=== PATIENT | female | born 1960 | race Caucasian/White ===

== ENCOUNTER 2023-01-26 14:12 | Inpatient (IN) | payer OTHER ==
[2023-01-26 14:40] VITALS: BMI 25.2
[2023-01-26] MEDS ORDERED: LOPERAMIDE HCL 2 MG CAPSULE PO PRN (15:51)
[2023-01-26] MEDS ORDERED: BENZONATATE 200 MG CAPSULE PO PRN (15:51)
[2023-01-26] MEDS ORDERED: ACETAMINOPHEN 325 MG TABLET (FP) PO PRN (15:51)
[2023-01-26] MEDS ORDERED: NICOTINE POLACRILEX 2 MG GUM BUC PRN (15:51)
[2023-01-26] MEDS ORDERED: guaiFENesin 600 MG TABLET.ER (FP) PO PRN (15:51)
[2023-01-26] MEDS ORDERED: BENZOCAINE/MENTHOL (CHLORASEPTIC ) LOZENGE MM PRN (15:51)
[2023-01-26] MEDS ORDERED: TUBERCULIN PPD 5 TU/0.1ML SYRINGE (IN PATIENT USE ONLY) ID ONE (15:51)
[2023-01-26] MEDS ORDERED: P-EPHED 60MG/TRIPROLIDI 2.5MG TABLET PO PRN (15:51)
[2023-01-26] MEDS ORDERED: MAG HYDROX/AL HYDROX/SIMETH 30 ML UNIT-DOSE CUP PO PRN (15:51)
[2023-01-26] MEDS ORDERED: POLYETHYLENE GLYCOL (HEALTHYLAX) 3350 17 GM PACKET PO PRN (15:51)
[2023-01-26] MEDS ORDERED: MAGNESIUM HYDROX 2400MG/30ML ORAL SUSPENSION 30 ML CUP PO PRN (15:51)
[2023-01-26] MEDS ORDERED: DARUNAVIR 800 MG/COBICISTAT 150MG TABLET PO SCH (17:30)
[2023-01-26] MEDS: ATORVASTATIN CA 40 MG TABLET (FP) PO SCH ×2 (21:54→22:30)
[2023-01-26] MEDS: THIAMINE HCL 100 MG TABLET (FP) PO SCH (21:54)
[2023-01-26] MEDS: CALCIUM 500MG/VIT-D 200 UNITS COMBO TABLET (FP) PO SCH ×2 (22:16→23:45)
[2023-01-26] MEDS: OXcarbazepine 300 MG TABLET (UD) PO SCH ×2 (23:45→23:55)
[2023-01-27] MEDS ORDERED: OXYBUTYNIN CHLORIDE 5 MG TABLET PO SCH ×2 (10:00→11:00)
[2023-01-27] MEDS ORDERED: ATORVASTATIN CA 20 MG TABLET (FP) PO SCH (10:06)
[2023-01-27] MEDS ORDERED: hydrOXYzine PAMOATE 25 MG CAPSULE (FP) PO PRN (10:09)
[2023-01-27] MEDS: PRENATAL VITAMINS W/ FOLIC ACID TABLET (FP) PO SCH (10:56)
[2023-01-27] MEDS: ASPIRIN COATED 81 MG TABLET.EC PO SCH (10:56)
[2023-01-27] MEDS: busPIRone HCL 10 MG TABLET (FP) PO SCH ×2 (10:56→21:06)
[2023-01-27] MEDS: CALCIUM 500MG/VIT-D 200 UNITS COMBO TABLET (FP) PO SCH ×2 (10:56→21:06)
[2023-01-27] MEDS: OXcarbazepine 300 MG TABLET (UD) PO SCH ×3 (10:58→21:06)
[2023-01-27] MEDS ORDERED: SENNOSIDES 8.6MG TABLET (FP) PO SCH (11:00)
[2023-01-27 11:50] LABS: HEMATOCRIT 35.1 % (32.4-45.2); HEMOGLOBIN 11.7 GM/dL (10.7-15.3); MCH 30.6 pg (25.7-33.7); MCHC 33.5 g/dl (32.0-36.0); MEAN CELL VOLUME 91.4 fl (80-96); MEAN PLT VOLUME 8.2 fl (7.5-11.1); PLATELET COUNT 255 10^3/uL (134-434); RBC 3.83 M/mm3 (3.60-5.2); RDW 15.5 % (11.6-15.6); WHITE BLOOD COUNT 4.9 K/mm3 (4.0-10.0)
[2023-01-27 11:55] LABS: ALBUMIN 3.1 g/dl (3.4-5.0); BLOOD UREA NITROGEN 12.4 mg/dL (7-18)
[2023-01-27 11:56] LABS: URINE APPEARANCE CLEAR; URINE BILIRUBIN NEGATIVE (NEGATIVE); URINE COLOR YELLOW; URINE GLUCOSE (UA) NEGATIVE (NEGATIVE); URINE KETONE NEGATIVE (NEGATIVE); URINE LEUK ESTERASE NEGATIVE (NEGATIVE); URINE NITRITE NEGATIVE (NEGATIVE); URINE PROTEIN NEGATIVE (NEGATIVE); URINE UROBILINOGEN 0.2 mg/dL (0.2-1.0)
[2023-01-27 11:58] LABS: CREATININE 0.7 mg/dL (0.55-1.3)
[2023-01-27 11:59] LABS: BILIRUBIN,TOTAL 0.4 mg/dL (0.2-1); TOT PROT 6.8 g/dl (6.4-8.2)
[2023-01-27] MEDS: DARUNAVIR/COB/EMTRI/TENOF (SYMTUZA) TABLET (NF) PO SCH (12:24)
[2023-01-27] MEDS ORDERED: PATIENT'S OWN MEDICATION (NON-FORMULARY) (Thiamine Hcl [B-1] 100 MG Tablet) PO SCH (14:45)
[2023-01-27] MEDS: FOLIC ACID 1 MG TABLET (FP) PO SCH (14:50)
[2023-01-27] MEDS: amLODIPine BESYLATE 5 MG TABLET (FP) PO SCH (14:50)
[2023-01-27] MEDS: LOSARTAN POTASSIUM 25 MG TABLET PO SCH (14:50)
[2023-01-27] MEDS: ISOSORBIDE MONONITRATE 30 MG TAB.SR.24H (FP) PO SCH (16:00)
[2023-01-27] MEDS: DOCUSATE SODIUM 100 MG CAPSULE (FP) PO SCH (21:05)
[2023-01-27] MEDS: THIAMINE HCL 100 MG TABLET (FP) PO SCH (21:06)
[2023-01-27] MEDS: ATORVASTATIN CA 40 MG TABLET (FP) PO SCH (21:06)
[2023-01-27] MEDS: SENNOSIDES 8.6MG TABLET (FP) PO PRN (21:06)
[2023-01-28] MEDS: LEVOTHYROXINE NA 25 MCG TABLET (FP) PO SCH (06:45)
[2023-01-28] MEDS: DARUNAVIR/COB/EMTRI/TENOF (SYMTUZA) TABLET (NF) PO SCH (08:07)
[2023-01-28] MEDS: ISOSORBIDE MONONITRATE 30 MG TAB.SR.24H (FP) PO SCH (10:07)
[2023-01-28] MEDS: PRENATAL VITAMINS W/ FOLIC ACID TABLET (FP) PO SCH (10:07)
[2023-01-28] MEDS: busPIRone HCL 10 MG TABLET (FP) PO SCH ×2 (10:07→21:29)
[2023-01-28] MEDS: OXcarbazepine 300 MG TABLET (UD) PO SCH ×2 (10:07→21:29)
[2023-01-28] MEDS: LOSARTAN POTASSIUM 25 MG TABLET PO SCH (10:07)
[2023-01-28] MEDS: amLODIPine BESYLATE 5 MG TABLET (FP) PO SCH (10:07)
[2023-01-28] MEDS: FOLIC ACID 1 MG TABLET (FP) PO SCH (10:07)
[2023-01-28] MEDS: ASPIRIN COATED 81 MG TABLET.EC PO SCH (10:07)
[2023-01-28] MEDS: DOCUSATE SODIUM 100 MG CAPSULE (FP) PO SCH ×2 (10:07→21:29)
[2023-01-28] MEDS: CLOPIDOGREL BISULFATE 75 MG TABLET (FP) PO SCH (10:07)
[2023-01-28] MEDS: CALCIUM 500MG/VIT-D 200 UNITS COMBO TABLET (FP) PO SCH ×2 (10:08→21:29)
[2023-01-28] MEDS: SENNOSIDES 8.6MG TABLET (FP) PO PRN (21:29)
[2023-01-28] MEDS: ATORVASTATIN CA 40 MG TABLET (FP) PO SCH (21:29)
[2023-01-28] MEDS: BACITRACIN ZINC 15 GM TUBE TOPICAL OINTMENT TP SCH (21:29)
[2023-01-28] MEDS: THIAMINE HCL 100 MG TABLET (FP) PO SCH (21:29)
[2023-01-29] MEDS: NICOTINE 10 MG CARTRIDGE (INHALER) IH PRN (06:37)
[2023-01-29] MEDS: LEVOTHYROXINE NA 25 MCG TABLET (FP) PO SCH (06:40)
[2023-01-29] MEDS: DARUNAVIR/COB/EMTRI/TENOF (SYMTUZA) TABLET (NF) PO SCH (07:03)
[2023-01-29] MEDS: BACITRACIN ZINC 15 GM TUBE TOPICAL OINTMENT TP SCH ×2 (10:23→21:55)
[2023-01-29] MEDS: DOCUSATE SODIUM 100 MG CAPSULE (FP) PO SCH ×2 (10:24→21:56)
[2023-01-29] MEDS: busPIRone HCL 10 MG TABLET (FP) PO SCH ×2 (10:24→21:56)
[2023-01-29] MEDS: LOSARTAN POTASSIUM 25 MG TABLET PO SCH (10:28)
[2023-01-29] MEDS: ISOSORBIDE MONONITRATE 30 MG TAB.SR.24H (FP) PO SCH (10:29)
[2023-01-29] MEDS: FOLIC ACID 1 MG TABLET (FP) PO SCH (10:29)
[2023-01-29] MEDS: ASPIRIN COATED 81 MG TABLET.EC PO SCH (10:29)
[2023-01-29] MEDS: amLODIPine BESYLATE 5 MG TABLET (FP) PO SCH (10:30)
[2023-01-29] MEDS: CLOPIDOGREL BISULFATE 75 MG TABLET (FP) PO SCH (10:30)
[2023-01-29] MEDS: PRENATAL VITAMINS W/ FOLIC ACID TABLET (FP) PO SCH (10:30)
[2023-01-29] MEDS: CALCIUM 500MG/VIT-D 200 UNITS COMBO TABLET (FP) PO SCH ×2 (10:30→21:58)
[2023-01-29] MEDS: OXcarbazepine 300 MG TABLET (UD) PO SCH ×2 (10:31→21:56)
[2023-01-29] MEDS: WITCH HAZEL 50% (TUCKS) 40 PAD/JAR PAD TP PRN ×2 (12:15→21:45)
[2023-01-29] MEDS: ATORVASTATIN CA 40 MG TABLET (FP) PO SCH (21:56)
[2023-01-29] MEDS: THIAMINE HCL 100 MG TABLET (FP) PO SCH (21:58)
[2023-01-29] MEDS: HYDROCORTISONE 2.5% TOPICAL CREAM 30 GM TUBE TP SCH (21:58)
[2023-01-30] MEDS: LEVOTHYROXINE NA 25 MCG TABLET (FP) PO SCH (06:36)
[2023-01-30] MEDS: busPIRone HCL 10 MG TABLET (FP) PO SCH ×2 (10:43→21:25)
[2023-01-30] MEDS: FOLIC ACID 1 MG TABLET (FP) PO SCH (10:43)
[2023-01-30] MEDS: CALCIUM 500MG/VIT-D 200 UNITS COMBO TABLET (FP) PO SCH ×2 (10:43→21:25)
[2023-01-30] MEDS: LOSARTAN POTASSIUM 25 MG TABLET PO SCH (10:43)
[2023-01-30] MEDS: ASPIRIN COATED 81 MG TABLET.EC PO SCH (10:43)
[2023-01-30] MEDS: amLODIPine BESYLATE 5 MG TABLET (FP) PO SCH (10:44)
[2023-01-30] MEDS: CLOPIDOGREL BISULFATE 75 MG TABLET (FP) PO SCH (10:44)
[2023-01-30] MEDS: DOCUSATE SODIUM 100 MG CAPSULE (FP) PO SCH ×2 (10:44→21:25)
[2023-01-30] MEDS: HYDROCORTISONE 2.5% TOPICAL CREAM 30 GM TUBE TP SCH ×2 (10:46→21:26)
[2023-01-30] MEDS: PRENATAL VITAMINS W/ FOLIC ACID TABLET (FP) PO SCH (10:48)
[2023-01-30] MEDS: BACITRACIN ZINC 15 GM TUBE TOPICAL OINTMENT TP SCH ×2 (11:26→21:25)
[2023-01-30] MEDS: ISOSORBIDE MONONITRATE 30 MG TAB.SR.24H (FP) PO SCH (11:27)
[2023-01-30] MEDS: OXcarbazepine 300 MG TABLET (UD) PO SCH ×2 (11:35→21:25)
[2023-01-30] MEDS: DARUNAVIR/COB/EMTRI/TENOF (SYMTUZA) TABLET (NF) PO SCH (11:47)
[2023-01-30] MEDS: hydrOXYzine PAMOATE 25 MG CAPSULE (FP) PO PRN ×2 (14:48→21:28)
[2023-01-30] MEDS: THIAMINE HCL 100 MG TABLET (FP) PO SCH (21:25)
[2023-01-30] MEDS: ATORVASTATIN CA 40 MG TABLET (FP) PO SCH (21:25)
[2023-01-31] MEDS: LEVOTHYROXINE NA 25 MCG TABLET (FP) PO SCH (06:35)
[2023-01-31] MEDS: DARUNAVIR/COB/EMTRI/TENOF (SYMTUZA) TABLET (NF) PO SCH (07:07)
[2023-01-31] MEDS: NICOTINE 10 MG CARTRIDGE (INHALER) IH PRN (07:09)
[2023-01-31 07:31] VITALS: RESP 18
[2023-01-31] MEDS: DOCUSATE SODIUM 100 MG CAPSULE (FP) PO SCH ×2 (10:19→21:46)
[2023-01-31] MEDS: PRENATAL VITAMINS W/ FOLIC ACID TABLET (FP) PO SCH (10:19)
[2023-01-31] MEDS: CALCIUM 500MG/VIT-D 200 UNITS COMBO TABLET (FP) PO SCH ×2 (10:19→21:46)
[2023-01-31] MEDS: LOSARTAN POTASSIUM 25 MG TABLET PO SCH (10:19)
[2023-01-31] MEDS: busPIRone HCL 10 MG TABLET (FP) PO SCH ×2 (10:19→21:46)
[2023-01-31] MEDS: amLODIPine BESYLATE 5 MG TABLET (FP) PO SCH (10:19)
[2023-01-31] MEDS: FOLIC ACID 1 MG TABLET (FP) PO SCH (10:19)
[2023-01-31] MEDS: BACITRACIN ZINC 15 GM TUBE TOPICAL OINTMENT TP SCH ×2 (10:20→21:46)
[2023-01-31] MEDS: ISOSORBIDE MONONITRATE 30 MG TAB.SR.24H (FP) PO SCH (10:20)
[2023-01-31] MEDS: CLOPIDOGREL BISULFATE 75 MG TABLET (FP) PO SCH (10:20)
[2023-01-31] MEDS: OXcarbazepine 300 MG TABLET (UD) PO SCH ×2 (10:21→21:47)
[2023-01-31] MEDS: HYDROCORTISONE 2.5% TOPICAL CREAM 30 GM TUBE TP SCH ×2 (10:21→21:46)
[2023-01-31] MEDS: ASPIRIN COATED 81 MG TABLET.EC PO SCH (10:21)
[2023-01-31] MEDS: WITCH HAZEL 50% (TUCKS) 40 PAD/JAR PAD TP PRN (10:24)
[2023-01-31] MEDS: ATORVASTATIN CA 40 MG TABLET (FP) PO SCH (21:46)
[2023-01-31] MEDS: THIAMINE HCL 100 MG TABLET (FP) PO SCH (21:46)
[2023-01-31] MEDS: MELATONIN 5 MG TABLETS PO PRN (21:46)
[2023-02-01] MEDS: LEVOTHYROXINE NA 25 MCG TABLET (FP) PO SCH (05:57)
[2023-02-01] MEDS: DARUNAVIR/COB/EMTRI/TENOF (SYMTUZA) TABLET (NF) PO SCH (07:43)
[2023-02-01] MEDS: PRENATAL VITAMINS W/ FOLIC ACID TABLET (FP) PO SCH (10:18)
[2023-02-01] MEDS: DOCUSATE SODIUM 100 MG CAPSULE (FP) PO SCH ×2 (10:19→21:24)
[2023-02-01] MEDS: ASPIRIN COATED 81 MG TABLET.EC PO SCH (10:19)
[2023-02-01] MEDS: CALCIUM 500MG/VIT-D 200 UNITS COMBO TABLET (FP) PO SCH ×2 (10:19→21:24)
[2023-02-01] MEDS: LOSARTAN POTASSIUM 25 MG TABLET PO SCH (10:19)
[2023-02-01] MEDS: busPIRone HCL 10 MG TABLET (FP) PO SCH ×2 (10:19→21:24)
[2023-02-01] MEDS: CLOPIDOGREL BISULFATE 75 MG TABLET (FP) PO SCH (10:19)
[2023-02-01] MEDS: FOLIC ACID 1 MG TABLET (FP) PO SCH (10:19)
[2023-02-01] MEDS: amLODIPine BESYLATE 5 MG TABLET (FP) PO SCH (10:19)
[2023-02-01] MEDS: HYDROCORTISONE 2.5% TOPICAL CREAM 30 GM TUBE TP SCH ×2 (10:19→21:25)
[2023-02-01] MEDS: ISOSORBIDE MONONITRATE 30 MG TAB.SR.24H (FP) PO SCH (10:20)
[2023-02-01] MEDS: OXcarbazepine 300 MG TABLET (UD) PO SCH ×2 (10:20→21:26)
[2023-02-01] MEDS: BACITRACIN ZINC 15 GM TUBE TOPICAL OINTMENT TP SCH ×2 (10:22→21:25)
[2023-02-01] MEDS: ATORVASTATIN CA 40 MG TABLET (FP) PO SCH (21:24)
[2023-02-01] MEDS: THIAMINE HCL 100 MG TABLET (FP) PO SCH (21:25)
[2023-02-01] MEDS: MELATONIN 5 MG TABLETS PO PRN (21:25)
[2023-02-02] MEDS: LEVOTHYROXINE NA 25 MCG TABLET (FP) PO SCH (06:54)
[2023-02-02] MEDS: DARUNAVIR/COB/EMTRI/TENOF (SYMTUZA) TABLET (NF) PO SCH (07:55)
[2023-02-02] MEDS: BACITRACIN ZINC 15 GM TUBE TOPICAL OINTMENT TP SCH ×2 (10:11→21:29)
[2023-02-02] MEDS: HYDROCORTISONE 2.5% TOPICAL CREAM 30 GM TUBE TP SCH ×2 (10:11→21:29)
[2023-02-02] MEDS: ASPIRIN COATED 81 MG TABLET.EC PO SCH (10:12)
[2023-02-02] MEDS: busPIRone HCL 10 MG TABLET (FP) PO SCH ×2 (10:12→21:28)
[2023-02-02] MEDS: LOSARTAN POTASSIUM 25 MG TABLET PO SCH (10:12)
[2023-02-02] MEDS: DOCUSATE SODIUM 100 MG CAPSULE (FP) PO SCH ×2 (10:12→21:28)
[2023-02-02] MEDS: ISOSORBIDE MONONITRATE 30 MG TAB.SR.24H (FP) PO SCH (10:13)
[2023-02-02] MEDS: amLODIPine BESYLATE 5 MG TABLET (FP) PO SCH (10:13)
[2023-02-02] MEDS: FOLIC ACID 1 MG TABLET (FP) PO SCH (10:13)
[2023-02-02] MEDS: PRENATAL VITAMINS W/ FOLIC ACID TABLET (FP) PO SCH (10:14)
[2023-02-02] MEDS: CLOPIDOGREL BISULFATE 75 MG TABLET (FP) PO SCH (10:14)
[2023-02-02] MEDS: CALCIUM 500MG/VIT-D 200 UNITS COMBO TABLET (FP) PO SCH ×2 (10:14→21:28)
[2023-02-02] MEDS: OXcarbazepine 300 MG TABLET (UD) PO SCH ×2 (10:15→21:29)
[2023-02-02] MEDS: ATORVASTATIN CA 40 MG TABLET (FP) PO SCH (21:28)
[2023-02-02] MEDS: THIAMINE HCL 100 MG TABLET (FP) PO SCH (21:28)
[2023-02-02] MEDS: SENNOSIDES 8.6MG TABLET (FP) PO PRN (21:34)
[2023-02-03] MEDS: LEVOTHYROXINE NA 25 MCG TABLET (FP) PO SCH (06:18)
[2023-02-03] MEDS: PRENATAL VITAMINS W/ FOLIC ACID TABLET (FP) PO SCH (09:45)
[2023-02-03] MEDS: amLODIPine BESYLATE 5 MG TABLET (FP) PO SCH (09:46)
[2023-02-03] MEDS: CLOPIDOGREL BISULFATE 75 MG TABLET (FP) PO SCH (09:46)
[2023-02-03] MEDS: FOLIC ACID 1 MG TABLET (FP) PO SCH (09:46)
[2023-02-03] MEDS: DOCUSATE SODIUM 100 MG CAPSULE (FP) PO SCH ×2 (09:46→21:37)
[2023-02-03] MEDS: busPIRone HCL 10 MG TABLET (FP) PO SCH ×2 (09:46→21:37)
[2023-02-03] MEDS: LOSARTAN POTASSIUM 25 MG TABLET PO SCH (09:46)
[2023-02-03] MEDS: CALCIUM 500MG/VIT-D 200 UNITS COMBO TABLET (FP) PO SCH ×2 (09:46→21:36)
[2023-02-03] MEDS: ASPIRIN COATED 81 MG TABLET.EC PO SCH (09:47)
[2023-02-03] MEDS: OXcarbazepine 300 MG TABLET (UD) PO SCH ×2 (09:48→21:37)
[2023-02-03] MEDS: ISOSORBIDE MONONITRATE 30 MG TAB.SR.24H (FP) PO SCH (09:48)
[2023-02-03] MEDS: HYDROCORTISONE 2.5% TOPICAL CREAM 30 GM TUBE TP SCH ×2 (09:49→21:40)
[2023-02-03] MEDS: BACITRACIN ZINC 15 GM TUBE TOPICAL OINTMENT TP SCH ×2 (09:50→21:43)
[2023-02-03] MEDS: DARUNAVIR/COB/EMTRI/TENOF (SYMTUZA) TABLET (NF) PO SCH (10:16)
[2023-02-03 11:21] LABS: BASO % 0.7 % (0-2.0); EOS % 1.8 % (0-4.5); HEMATOCRIT 33.6 % (32.4-45.2); HEMOGLOBIN 11.4 GM/dL (10.7-15.3); LYMPH % 25.8 % (8-40); MCH 31.1 pg (25.7-33.7); MEAN CELL VOLUME 91.3 fl (80-96); MEAN PLT VOLUME 8.2 fl (7.5-11.1); MONO % 7.9 % (3.8-10.2); NEUT % 63.8 % (42.8-82.8); PLATELET COUNT 256 10^3/uL (134-434); RBC 3.68 M/mm3 (3.60-5.2); RDW 15.8 % (11.6-15.6); WHITE BLOOD COUNT 6.3 K/mm3 (4.0-10.0)
[2023-02-03] MEDS: WITCH HAZEL 50% (TUCKS) 40 PAD/JAR PAD TP PRN ×2 (11:54→21:41)
[2023-02-03] MEDS: THIAMINE HCL 100 MG TABLET (FP) PO SCH (21:37)
[2023-02-03] MEDS: MELATONIN 5 MG TABLETS PO PRN (21:37)
[2023-02-03] MEDS: ATORVASTATIN CA 40 MG TABLET (FP) PO SCH (21:37)
[2023-02-03] MEDS: SENNOSIDES 8.6MG TABLET (FP) PO PRN (21:39)
[2023-02-04] MEDS: LEVOTHYROXINE NA 25 MCG TABLET (FP) PO SCH (06:43)
[2023-02-04 07:21] VITALS: TEMP 98.1
[2023-02-04] MEDS: DARUNAVIR/COB/EMTRI/TENOF (SYMTUZA) TABLET (NF) PO SCH (07:41)
[2023-02-04] MEDS: amLODIPine BESYLATE 5 MG TABLET (FP) PO SCH (10:13)
[2023-02-04] MEDS: ISOSORBIDE MONONITRATE 30 MG TAB.SR.24H (FP) PO SCH (10:13)
[2023-02-04] MEDS: LOSARTAN POTASSIUM 25 MG TABLET PO SCH (10:13)
[2023-02-04] MEDS: HYDROCORTISONE 2.5% TOPICAL CREAM 30 GM TUBE TP SCH (10:13)
[2023-02-04] MEDS: busPIRone HCL 10 MG TABLET (FP) PO SCH (10:13)
[2023-02-04] MEDS: ASPIRIN COATED 81 MG TABLET.EC PO SCH (10:13)
[2023-02-04] MEDS: FOLIC ACID 1 MG TABLET (FP) PO SCH (10:13)
[2023-02-04] MEDS: CALCIUM 500MG/VIT-D 200 UNITS COMBO TABLET (FP) PO SCH (10:13)
[2023-02-04] MEDS: CLOPIDOGREL BISULFATE 75 MG TABLET (FP) PO SCH (10:13)
[2023-02-04] MEDS: DOCUSATE SODIUM 100 MG CAPSULE (FP) PO SCH (10:13)
[2023-02-04] MEDS: PRENATAL VITAMINS W/ FOLIC ACID TABLET (FP) PO SCH (10:14)
[2023-02-04] MEDS: OXcarbazepine 300 MG TABLET (UD) PO SCH (10:14)
[2023-02-04] MEDS: BACITRACIN ZINC 15 GM TUBE TOPICAL OINTMENT TP SCH (10:14)
[2023-02-04] MEDS: WITCH HAZEL 50% (TUCKS) 40 PAD/JAR PAD TP PRN (10:16)
[2023-02-04 11:29] VITALS: BP 149/77; PULSE 73
== END 2023-02-04 15:25 | disposition home or self-care (01) | DRG 772 ==
LOC: YASAS 14:12 → Y5N 19:34
PROVIDERS: ADMIT Allergy & Immunology; ATTEND Psychiatry & Neurology Pain Medicine
PROC: HZ42ZZZ Group Counseling for Substance Abuse Treatment, Cognitive-Behavioral (ICD-10-PCS; principal; 2023-01-26)
DX: F14.20 Cocaine dependence, uncomplicated (principal); F10.20 Alcohol dependence, uncomplicated; F17.210 Nicotine dependence, cigarettes, uncomplicated; F19.280 Other psychoactive substance dependence with psychoactive substance-induced anxiety disorder; F43.10 Post-traumatic stress disorder, unspecified; Z21 Asymptomatic human immunodeficiency virus [HIV] infection status; E78.5 Hyperlipidemia, unspecified; I25.10 Atherosclerotic heart disease of native coronary artery without angina pectoris; I10 Essential (primary) hypertension; Z95.5 Presence of coronary angioplasty implant and graft; Z91.410 Personal history of adult physical and sexual abuse; Z86.19 Personal history of other infectious and parasitic diseases; Z88.1 Allergy status to other antibiotic agents
CPT/HCPCS: 36415; 80053; 81003; 84443; 85025; 85027; 86593; 86780; 93005; 93010; C9803-CS; U0003; U0005

== ENCOUNTER 2024-03-23 11:11 | Inpatient (IN) | payer OTHER ==
[2024-03-23 12:31] VITALS: BMI 20.7
[2024-03-23] MEDS ORDERED: IBUPROFEN 600 MG TABLET (FP) PO PRN (13:14)
[2024-03-23] MEDS ORDERED: MAGNESIUM HYDROX 2400MG/30ML ORAL SUSPENSION 30 ML CUP PO PRN (13:14)
[2024-03-23] MEDS ORDERED: LOPERAMIDE HCL 2 MG CAPSULE PO PRN (13:14)
[2024-03-23] MEDS ORDERED: BISMUTH SUBSALICYLATE 524 MG/30 ML PO PRN (13:14)
[2024-03-23] MEDS ORDERED: METHOCARBAMOL 500 MG TABLET PO PRN (13:14)
[2024-03-23] MEDS ORDERED: hydrOXYzine PAMOATE 25 MG CAPSULE (FP) PO PRN (13:14)
[2024-03-23] MEDS ORDERED: BENZONATATE 200 MG CAPSULE PO PRN (13:14)
[2024-03-23] MEDS ORDERED: NICOTINE 14 MG/24 HOURS TOPICAL PATCH TD PRN (13:14)
[2024-03-23] MEDS ORDERED: POLYETHYLENE GLYCOL (HEALTHYLAX) 3350 17 GM PACKET PO PRN (13:14)
[2024-03-23] MEDS ORDERED: guaiFENesin 600 MG TABLET.ER (FP) PO PRN (13:14)
[2024-03-23] MEDS ORDERED: NICOTINE POLACRILEX 2 MG GUM BUC PRN (13:14)
[2024-03-23] MEDS ORDERED: MAG HYDROX/AL HYDROX/SIMETH 30 ML UNIT-DOSE CUP PO PRN (13:14)
[2024-03-23] MEDS ORDERED: IBUPROFEN 400 MG TABLET (FP) PO PRN (13:14)
[2024-03-23] MEDS ORDERED: BENZOCAINE/MENTHOL (CHLORASEPTIC ) LOZENGE MM PRN (13:14)
[2024-03-23] MEDS: LORazepam 1 MG TABLET PO SCH (17:40)
[2024-03-23] MEDS: MELATONIN 5 MG TABLETS PO SCH (22:25)
[2024-03-23] MEDS: THIAMINE 100 MG TABLET PO SCH (22:25)
[2024-03-24] MEDS ORDERED: BICTEGRAV/EMTRICIT/TENOFOV (BIKTARVY) 50-200-25 MG TABLET PO SCH ×2 (10:00→11:10)
[2024-03-24] MEDS: CALCIUM 500MG/VIT-D 200 UNITS COMBO TABLET (FP) PO SCH (10:25)
[2024-03-24] MEDS: amLODIPine BESYLATE 5 MG TABLET (FP) PO SCH (10:25)
[2024-03-24] MEDS: DOCUSATE SODIUM 100 MG CAPSULE (FP) PO SCH (10:25)
[2024-03-24] MEDS: LOSARTAN POTASSIUM 25 MG TABLET PO SCH (10:25)
[2024-03-24] MEDS: CLOPIDOGREL BISULFATE 75 MG TABLET (FP) PO SCH (10:25)
[2024-03-24] MEDS: PRENATAL VITAMINS W/ FOLIC ACID TABLET (FP) PO SCH (10:25)
[2024-03-24 10:49] LABS: CHLORIDE 109 mmol/L (98-107); SODIUM 142 mmol/L (136-145)
[2024-03-24 10:52] LABS: ANION GAP 5 mmol/L (4-13); BLOOD UREA NITROGEN 17.8 mg/dL (7-18); CALCIUM 8.8 mg/dL (8.5-10.1); CO2 28 mmol/L (21-32); GLUCOSE,RANDOM 118 mg/dL (74-106)
[2024-03-24 10:55] LABS: SGPT/ALT 10 U/L (13-61)
[2024-03-24 10:56] LABS: CREATININE 0.6 mg/dL (0.55-1.3); HEMATOCRIT 38.2 % (32.4-45.2); HEMOGLOBIN 12.7 GM/dL (10.7-15.3); MCH 29.7 pg (25.7-33.7); MCHC 33.4 g/dl (32.0-36.0); MEAN CELL VOLUME 88.9 fl (80-96); PLATELET COUNT 222 10^3/uL (134-434); RBC 4.29 M/mm3 (3.60-5.2); RDW 16.1 % (11.6-15.6); SGOT/AST 9 U/L (15-37); WHITE BLOOD COUNT 4.6 K/mm3 (4.0-10.0)
[2024-03-24 10:57] LABS: BILIRUBIN,TOTAL 0.5 mg/dL (0.2-1); TOT PROT 6.3 g/dl (6.4-8.2)
[2024-03-24 10:58] LABS: ALK PHOS 117 U/L (45-117)
[2024-03-24] MEDS: ISOSORBIDE MONONITRATE 30 MG TAB.SR.24H (FP) PO SCH (11:00)
[2024-03-24] MEDS: BICTEGRAV/EMTRICIT/TENOFOV (BIKTARVY) 50-200-25 MG TABLET PO ONE (12:05)
[2024-03-24] MEDS: LORazepam 1 MG TABLET PO PRN (20:06)
[2024-03-24] MEDS: ATORVASTATIN CA 40 MG TABLET (FP) PO SCH (22:06)
[2024-03-25] MEDS: LORazepam 1 MG TABLET PO SCH (05:33)
[2024-03-25] MEDS: LEVOTHYROXINE NA 25 MCG TABLET (FP) PO SCH (06:13)
[2024-03-25] MEDS ORDERED: BICTEGRAV/EMTRICIT/TENOFOV (BIKTARVY) 50-200-25 MG TABLET PO SCH (08:00)
[2024-03-25] MEDS: BICTEGRAV/EMTRICIT/TENOFOV (BIKTARVY) 50-200-25 MG TABLET PO SCH (08:01)
[2024-03-25] MEDS: FAMOTIDINE 20 MG TABLET PO SCH (14:16)
[2024-03-26] MEDS: LORazepam 0.5 MG TABLET PO SCH (05:24)
[2024-03-26] MEDS: ACETAMINOPHEN 325 MG TABLET (FP) PO PRN (23:17)
[2024-03-27] MEDS: LORazepam 0.5 MG TABLET PO ONE (05:27)
[2024-03-27 09:37] VITALS: BP 135/76; PULSE 69; RESP 18; TEMP 96.9
== END 2024-03-27 10:23 | disposition other institution (70) | DRG 774 ==
LOC: YASAS 11:11 → Y6N 13:28
PROVIDERS: ADMIT Allergy & Immunology; ATTEND Surgery
PROC: HZ2ZZZZ Detoxification Services for Substance Abuse Treatment (ICD-10-PCS; principal; 2024-03-23)
DX: F10.230 Alcohol dependence with withdrawal, uncomplicated (principal); F14.20 Cocaine dependence, uncomplicated; F17.210 Nicotine dependence, cigarettes, uncomplicated; Z21 Asymptomatic human immunodeficiency virus [HIV] infection status; I10 Essential (primary) hypertension; E78.5 Hyperlipidemia, unspecified; E03.9 Hypothyroidism, unspecified; E83.51 Hypocalcemia; K21.9 Gastro-esophageal reflux disease without esophagitis; K59.00 Constipation, unspecified; Z86.718 Personal history of other venous thrombosis and embolism; Z79.02 Long term (current) use of antithrombotics/antiplatelets; Z86.19 Personal history of other infectious and parasitic diseases; Z88.2 Allergy status to sulfonamides
CPT/HCPCS: 36415; 80053; 80305; 80307; 85027; 86593; 86780; 93005; 93010

== ENCOUNTER 2024-08-25 16:38 | Emergency (ER) | payer OTHER ==
[2024-08-25 17:01] VITALS: BP 132/76; PULSE 73; RESP 18; TEMP 98.2; BMI 23.3
== END 2024-08-25 17:49 | disposition home or self-care (01) ==
LOC: JER 16:38
DX: Z48.02 Encounter for removal of sutures (principal)
CPT/HCPCS: 99281-25

== ENCOUNTER 2024-08-25 20:02 | Inpatient (IN) | payer OTHER ==
[2024-08-25 13:13] VITALS: BMI 23.3
[~2024-08-25 20:02] MED LIST: ACETAMINOPHEN 325 MG TABLET (FP) PO PRN; BENZOCAINE/MENTHOL (CHLORASEPTIC ) LOZENGE MM PRN; BENZONATATE 200 MG CAPSULE PO PRN; IBUPROFEN 400 MG TABLET (FP) PO PRN; MAG HYDROX/AL HYDROX/SIMETH 30 ML UNIT-DOSE CUP PO PRN; MAGNESIUM HYDROX 2400MG/30ML ORAL SUSPENSION 30 ML CUP PO PRN; NALOXONE (NARCAN) HCL 4 MG/0.1 ML SPRAY NS PRN; NICOTINE POLACRILEX 2 MG GUM BUC PRN; POLYETHYLENE GLYCOL (HEALTHYLAX) 3350 17 GM PACKET PO PRN; guaiFENesin 600 MG TABLET.ER (FP) PO PRN
[2024-08-25] MEDS ORDERED: ACETAMINOPHEN 325 MG TABLET (FP) ONE (21:33)
[2024-08-25] MEDS ORDERED: ACETAMINOPHEN 325 MG TABLET (FP) PO PRN (22:27)
[2024-08-26] MEDS: THIAMINE 100 MG TABLET PO SCH (00:20)
[2024-08-26] MEDS: MELATONIN 5 MG TABLETS PO SCH (00:20)
[2024-08-26] MEDS: METHOCARBAMOL 500 MG TABLET PO ONE (00:20)
[2024-08-26] MEDS: amLODIPine BESYLATE 5 MG TABLET (FP) PO SCH (01:30)
[2024-08-26] MEDS: LEVOTHYROXINE NA 25 MCG TABLET (FP) PO SCH (06:50)
[2024-08-26] MEDS: ASPIRIN 81 MG CHEWABLE TABLETS PO SCH (09:40)
[2024-08-26] MEDS: LOSARTAN POTASSIUM 25 MG TABLET PO SCH (09:40)
[2024-08-26] MEDS: GABAPENTIN 100 MG CAPSULE PO SCH (09:40)
[2024-08-26] MEDS: CLOPIDOGREL BISULFATE 75 MG TABLET (FP) PO SCH (09:40)
[2024-08-26] MEDS: PRENATAL VITAMINS W/ FOLIC ACID TABLET (FP) PO SCH (09:40)
[2024-08-26] MEDS: BICTEGRAV/EMTRICIT/TENOFOV (BIKTARVY) 50-200-25 MG TABLET PO SCH (09:41)
[2024-08-26] MEDS: NICOTINE 14 MG/24 HOURS TOPICAL PATCH TD SCH (09:45)
[2024-08-26] MEDS ORDERED: LOSARTAN POTASSIUM 25 MG TABLET PO SCH (10:00)
[2024-08-26] MEDS ORDERED: amLODIPine BESYLATE 5 MG TABLET (FP) PO SCH (10:00)
[2024-08-26 11:59] LABS: HEMATOCRIT 38.5 % (32.4-45.2); HEMOGLOBIN 13.1 GM/dL (10.7-15.3); MCH 32.2 pg (25.7-33.7); MCHC 34.2 g/dl (32.0-36.0); MEAN CELL VOLUME 94.3 fl (80-96); MEAN PLT VOLUME 8.2 fl (7.5-11.1); PLATELET COUNT 247 10^3/uL (134-434); RBC 4.08 M/mm3 (3.60-5.2); RDW 14.7 % (11.6-15.6); WHITE BLOOD COUNT 4.6 K/mm3 (4.0-10.0)
[2024-08-26 12:02] LABS: ALBUMIN 3.6 g/dl (3.4-5.0); BLOOD UREA NITROGEN 8.6 mg/dL (7-18); CALCIUM 9.1 mg/dL (8.5-10.1)
[2024-08-26 12:06] LABS: CREATININE 0.8 mg/dL (0.55-1.3)
[2024-08-26 12:07] LABS: BILIRUBIN,TOTAL 0.4 mg/dL (0.2-1); TOT PROT 6.7 g/dl (6.4-8.2)
[2024-08-26] MEDS: LOPERAMIDE HCL 2 MG CAPSULE PO PRN (12:10)
[2024-08-26] MEDS: ATORVASTATIN CA 40 MG TABLET (FP) PO SCH (21:28)
[2024-08-26] MEDS: IBUPROFEN 600 MG TABLET (FP) PO PRN (21:29)
[2024-08-27 13:11] LABS: URINE APPEARANCE CLEAR; URINE BILIRUBIN NEGATIVE (NEGATIVE); URINE COLOR YELLOW; URINE GLUCOSE (UA) NEGATIVE (NEGATIVE); URINE KETONE NEGATIVE (NEGATIVE); URINE LEUK ESTERASE NEGATIVE (NEGATIVE); URINE NITRITE NEGATIVE (NEGATIVE); URINE PROTEIN NEGATIVE (NEGATIVE); URINE UROBILINOGEN 0.2 mg/dL (0.2-1.0)
[2024-08-27 13:15] LABS: EPI CELLS 3 /uL (0-25.1); HYALINE CASTS 0 /uL (0-3.1); URINE BACTERIA 7 /uL (0-1359); URINE RBC 2 /uL (0-23.9); URINE WBC 2 /uL (0-25.8)
[2024-08-27] MEDS: METHOCARBAMOL 500 MG TABLET PO PRN (17:23)
[2024-08-27] MEDS: hydrOXYzine PAMOATE 25 MG CAPSULE (FP) PO PRN (21:19)
[2024-08-28] MEDS ORDERED: hydrOXYzine PAMOATE 50 MG CAPSULE (FP) PO ONE (10:35)
[2024-08-28] MEDS: hydrOXYzine PAMOATE 50 MG CAPSULE (FP) PO ONE (11:43)
[2024-08-29 09:28] VITALS: BP 133/71; PULSE 80; RESP 18; TEMP 97.5
[2024-08-29] MEDS: NALOXONE (NYS OPIOID OVERDOSE PROGRAM) 4 MG/0.1 ML SPRAY NS PRN (10:06)
== END 2024-08-29 10:15 | disposition home or self-care (01) | DRG 772 ==
LOC: YASAS 20:02 → Y3NR 23:02
PROVIDERS: ADMIT Allergy & Immunology; ATTEND Psychiatry & Neurology Pain Medicine
PROC: HZ42ZZZ Group Counseling for Substance Abuse Treatment, Cognitive-Behavioral (ICD-10-PCS; principal; 2024-08-25)
DX: F10.20 Alcohol dependence, uncomplicated (principal); F14.20 Cocaine dependence, uncomplicated; F17.210 Nicotine dependence, cigarettes, uncomplicated; F41.9 Anxiety disorder, unspecified; F43.10 Post-traumatic stress disorder, unspecified; Z21 Asymptomatic human immunodeficiency virus [HIV] infection status; I25.10 Atherosclerotic heart disease of native coronary artery without angina pectoris; I10 Essential (primary) hypertension; Z95.5 Presence of coronary angioplasty implant and graft; E03.9 Hypothyroidism, unspecified; R78.5 Finding of other psychotropic drug in blood
CPT/HCPCS: 36415; 80053; 80305; 80307; 81003; 85027; 86593; 86780; 87811; 93005; 93010

== ENCOUNTER 2024-12-08 14:17 | Inpatient (IN) | payer OTHER ==
[2024-12-08 15:05] VITALS: BMI 24.6
[2024-12-08] MEDS ORDERED: POLYETHYLENE GLYCOL (HEALTHYLAX) 3350 17 GM PACKET PO PRN (17:00)
[2024-12-08] MEDS ORDERED: BENZOCAINE/MENTHOL (CHLORASEPTIC ) LOZENGE MM PRN (17:00)
[2024-12-08] MEDS ORDERED: IBUPROFEN 400 MG TABLET (FP) PO PRN (17:00)
[2024-12-08] MEDS ORDERED: BENZONATATE 200 MG CAPSULE PO PRN (17:00)
[2024-12-08] MEDS ORDERED: guaiFENesin 600 MG TABLET.ER (FP) PO PRN (17:00)
[2024-12-08] MEDS ORDERED: NICOTINE POLACRILEX 2 MG GUM BUC PRN (17:00)
[2024-12-08] MEDS ORDERED: MAGNESIUM HYDROX 2400MG/30ML ORAL SUSPENSION 30 ML CUP PO PRN (17:00)
[2024-12-08] MEDS ORDERED: IBUPROFEN 600 MG TABLET (FP) PO PRN (17:00)
[2024-12-08] MEDS ORDERED: NALOXONE (NARCAN) HCL 4 MG/0.1 ML SPRAY NS PRN (17:00)
[2024-12-08] MEDS ORDERED: MAG HYDROX/AL HYDROX/SIMETH 30 ML UNIT-DOSE CUP PO PRN (17:00)
[2024-12-08] MEDS ORDERED: NICOTINE POLACRILEX 2 MG LOZENGE BC PRN (17:00)
[2024-12-08] MEDS ORDERED: LOPERAMIDE HCL 2 MG CAPSULE PO PRN (17:00)
[2024-12-08] MEDS ORDERED: ACETAMINOPHEN 325 MG TABLET (FP) ONE (22:14)
[2024-12-08] MEDS: ACETAMINOPHEN 325 MG TABLET (FP) PO PRN (22:15)
[2024-12-08] MEDS: ATORVASTATIN CA 40 MG TABLET (FP) PO SCH (22:47)
[2024-12-08] MEDS: MELATONIN 5 MG TABLETS PO SCH (22:47)
[2024-12-08] MEDS: METHOCARBAMOL 500 MG TABLET PO PRN (22:47)
[2024-12-08] MEDS: DOCUSATE SODIUM 100 MG CAPSULE (FP) PO SCH (22:47)
[2024-12-08] MEDS: THIAMINE 100 MG TABLET PO SCH (22:48)
[2024-12-09] MEDS: LEVOTHYROXINE NA 25 MCG TABLET (FP) PO SCH (06:52)
[2024-12-09] MEDS: BICTEGRAV/EMTRICIT/TENOFOV (BIKTARVY) 50-200-25 MG TABLET PO SCH (07:17)
[2024-12-09] MEDS: PRENATAL VITAMINS W/ FOLIC ACID TABLET (FP) PO SCH (10:30)
[2024-12-09] MEDS: LIDOCAINE 5% TOPICAL PATCH TP SCH (10:30)
[2024-12-09] MEDS: CLOPIDOGREL BISULFATE 75 MG TABLET (FP) PO SCH (10:31)
[2024-12-09] MEDS: amLODIPine BESYLATE 5 MG TABLET (FP) PO SCH (10:31)
[2024-12-09] MEDS: ASPIRIN 81 MG CHEWABLE TABLETS PO SCH (10:31)
[2024-12-09] MEDS: PANTOPRAZOLE 20 MG TABLET PO SCH (10:31)
[2024-12-09] MEDS: NICOTINE 7 MG/24 HOURS TOPICAL PATCH TD SCH (10:31)
[2024-12-09 11:21] LABS: HEMATOCRIT 33.8 % (32.4-45.2); HEMOGLOBIN 11.1 GM/dL (10.7-15.3); MCH 30.6 pg (25.7-33.7); MCHC 32.8 g/dl (32.0-36.0); MEAN CELL VOLUME 93.3 fl (80-96); MEAN PLT VOLUME 7.8 fl (7.5-11.1); PLATELET COUNT 367 10^3/uL (134-434); RBC 3.62 M/mm3 (3.60-5.2); RDW 15.5 % (11.6-15.6)
[2024-12-09 11:25] LABS: POTASSIUM 4.1 mmol/L (3.5-5.1)
[2024-12-09 11:28] LABS: ALBUMIN 2.9 g/dl (3.4-5.0); CALCIUM 8.8 mg/dL (8.5-10.1)
[2024-12-09 11:29] LABS: BLOOD UREA NITROGEN 11.2 mg/dL (7-18)
[2024-12-09 11:32] LABS: CREATININE 0.6 mg/dL (0.55-1.3)
[2024-12-09 11:33] LABS: BILIRUBIN,TOTAL 0.3 mg/dL (0.2-1); TOT PROT 6.4 g/dl (6.4-8.2)
[2024-12-09] MEDS: LOSARTAN POTASSIUM 50 MG TABLET PO SCH (14:10)
[2024-12-09] MEDS: LIDOCAINE PATCH REMOVAL MC SCH (21:06)
[2024-12-10] MEDS: hydrOXYzine PAMOATE 50 MG CAPSULE (FP) PO ONE (13:23)
[2024-12-10] MEDS ORDERED: hydrOXYzine PAMOATE 25 MG CAPSULE (FP) PO PRN (16:00)
[2024-12-10] MEDS: hydrOXYzine PAMOATE 25 MG CAPSULE (FP) PO PRN (18:01)
[2024-12-11 17:03] LABS: PH,URINE 5.5 (5.0-8.0); URINE APPEARANCE CLEAR; URINE BILIRUBIN NEGATIVE (NEGATIVE); URINE COLOR YELLOW; URINE GLUCOSE (UA) NEGATIVE (NEGATIVE); URINE KETONE TRACE (NEGATIVE); URINE LEUK ESTERASE NEGATIVE (NEGATIVE); URINE NITRITE NEGATIVE (NEGATIVE); URINE PROTEIN NEGATIVE (NEGATIVE)
[2024-12-12 08:49] VITALS: RESP 18; TEMP 97.3
[2024-12-12 10:43] VITALS: BP 144/81; PULSE 90
== END 2024-12-12 11:45 | disposition home or self-care (01) | DRG 772 ==
LOC: YASAS 14:17 → Y3NR 21:34
PROVIDERS: ADMIT Psychiatry & Neurology Pain Medicine; ATTEND Allergy & Immunology
PROC: HZ42ZZZ Group Counseling for Substance Abuse Treatment, Cognitive-Behavioral (ICD-10-PCS; principal; 2024-12-08)
DX: F10.20 Alcohol dependence, uncomplicated (principal); F14.20 Cocaine dependence, uncomplicated; F17.210 Nicotine dependence, cigarettes, uncomplicated; F41.9 Anxiety disorder, unspecified; F43.10 Post-traumatic stress disorder, unspecified; F32.A Depression, unspecified; Z21 Asymptomatic human immunodeficiency virus [HIV] infection status; I25.10 Atherosclerotic heart disease of native coronary artery without angina pectoris; Z95.5 Presence of coronary angioplasty implant and graft; E03.9 Hypothyroidism, unspecified; E78.2 Mixed hyperlipidemia; K59.01 Slow transit constipation; R29.6 Repeated falls; Z86.19 Personal history of other infectious and parasitic diseases; Z88.2 Allergy status to sulfonamides; Z88.8 Allergy status to other drugs, medicaments and biological substances
CPT/HCPCS: 36415; 80053; 80305; 80307; 81003; 85027; 86593; 86780; 87811

== ENCOUNTER 2025-02-15 15:05 | Inpatient (IN) | payer OTHER ==
[2025-02-15] MEDS ORDERED: MAG HYDROX/AL HYDROX/SIMETH 30 ML UNIT-DOSE CUP PO PRN (16:31)
[2025-02-15] MEDS ORDERED: METHOCARBAMOL 500 MG TABLET PO PRN (16:31)
[2025-02-15] MEDS ORDERED: LOPERAMIDE HCL 2 MG CAPSULE PO PRN (16:31)
[2025-02-15] MEDS ORDERED: ONDANSETRON *ODT* 4 MG TABLET SL PRN (16:31)
[2025-02-15] MEDS ORDERED: NICOTINE POLACRILEX 2 MG GUM BUC PRN (16:31)
[2025-02-15] MEDS ORDERED: IBUPROFEN 400 MG TABLET (FP) PO PRN (16:31)
[2025-02-15] MEDS ORDERED: POLYETHYLENE GLYCOL (HEALTHYLAX) 3350 17 GM PACKET PO PRN (16:31)
[2025-02-15] MEDS ORDERED: guaiFENesin 600 MG TABLET.ER (FP) PO PRN (16:31)
[2025-02-15] MEDS ORDERED: BISMUTH SUBSALICYLATE 524 MG/30 ML PO PRN (16:31)
[2025-02-15] MEDS ORDERED: BENZONATATE 200 MG CAPSULE PO PRN (16:31)
[2025-02-15] MEDS ORDERED: NALOXONE (NARCAN) HCL 4 MG/0.1 ML SPRAY NS PRN (16:31)
[2025-02-15] MEDS ORDERED: DICYCLOMINE HCL 10 MG CAPSULE PO PRN (16:31)
[2025-02-15] MEDS ORDERED: IBUPROFEN 600 MG TABLET (FP) PO PRN (16:31)
[2025-02-15] MEDS ORDERED: BENZOCAINE/MENTHOL (CHLORASEPTIC ) LOZENGE MM PRN (16:31)
[2025-02-15] MEDS ORDERED: MAGNESIUM HYDROX 2400MG/30ML ORAL SUSPENSION 30 ML CUP PO PRN (16:31)
[2025-02-15] MEDS ORDERED: hydrOXYzine PAMOATE 25 MG CAPSULE (FP) PO PRN (16:31)
[2025-02-15] MEDS ORDERED: ACETAMINOPHEN 325 MG TABLET (FP) PO PRN (16:31)
[2025-02-15] MEDS: amLODIPine BESYLATE 5 MG TABLET (FP) PO SCH (17:42)
[2025-02-15] MEDS: LORazepam 2 MG TABLET PO SCH (17:43)
[2025-02-15] MEDS ORDERED: amLODIPine BESYLATE 5 MG TABLET (FP) ONE (17:48)
[2025-02-15] MEDS: ATORVASTATIN CA 40 MG TABLET (FP) PO SCH (22:39)
[2025-02-15] MEDS: THIAMINE 100 MG TABLET PO SCH (22:39)
[2025-02-15] MEDS: GABAPENTIN 100 MG CAPSULE PO SCH (22:40)
[2025-02-15] MEDS: MELATONIN 5 MG TABLETS PO SCH (22:40)
[2025-02-16] MEDS: LEVOTHYROXINE NA 25 MCG TABLET (FP) PO SCH (07:19)
[2025-02-16] MEDS: PRENATAL VITAMINS W/ FOLIC ACID TABLET (FP) PO SCH (10:24)
[2025-02-16] MEDS: LORazepam 1 MG TABLET PO SCH (10:24)
[2025-02-16] MEDS: BICTEGRAV/EMTRICIT/TENOFOV (BIKTARVY) 50-200-25 MG TABLET PO SCH (10:24)
[2025-02-16] MEDS: PANTOPRAZOLE 20 MG TABLET PO SCH (10:24)
[2025-02-16] MEDS: ASPIRIN 81 MG CHEWABLE TABLETS PO SCH (10:24)
[2025-02-16] MEDS: busPIRone HCL 10 MG TABLET (FP) PO SCH (11:38)
[2025-02-16 11:41] LABS: HEMATOCRIT 33.1 % (34.1-44.9); HEMOGLOBIN 11.1 g/dL (11.2-15.7); MCHC 33.5 g/dl (32.2-35.5); MEAN CELL VOLUME 98.2 fl (79.4-94.8); MEAN PLT VOLUME 10.3 fl (9.4-12.3); PLATELET COUNT 186 x10^3/uL (182-369); RDW 14.6 % (12.4-16.4)
[2025-02-16 12:13] LABS: CHLORIDE 113 mmol/L (98-107); POTASSIUM 3.9 mmol/L (3.5-5.1); SODIUM 144 mmol/L (136-145)
[2025-02-16] MEDS: CLOPIDOGREL BISULFATE 75 MG TABLET (FP) PO SCH (12:17)
[2025-02-16 12:20] LABS: CALCIUM 8.8 mg/dL (8.5-10.1)
[2025-02-16 12:21] LABS: ALBUMIN 2.6 g/dl (3.4-5.0); ANION GAP 6 mmol/L (4-13); BLOOD UREA NITROGEN 13.3 mg/dL (7-18); CO2 26 mmol/L (21-32); GLUCOSE,RANDOM 95 mg/dL (74-106)
[2025-02-16 12:24] LABS: CREATININE 0.5 mg/dL (0.55-1.3); SGOT/AST 17 U/L (15-37); SGPT/ALT 12 U/L (13-61)
[2025-02-16 12:25] LABS: BILIRUBIN,TOTAL 0.3 mg/dL (0.2-1)
[2025-02-16 12:26] LABS: TOT PROT 5.8 g/dl (6.4-8.2)
[2025-02-16 12:27] LABS: ALK PHOS 107 U/L (45-117)
[2025-02-16] MEDS: LOSARTAN POTASSIUM 50 MG TABLET PO SCH (13:57)
[2025-02-16 20:45] VITALS: RESP 16
[2025-02-17] MEDS: LORazepam 0.5 MG TABLET PO SCH (05:45)
[2025-02-17] MEDS: LORazepam 1 MG TABLET PO SCH (07:07)
[2025-02-17 13:16] VITALS: BP 116/68; PULSE 59; TEMP 97.7
[2025-02-18] MEDS ORDERED: LORazepam 0.5 MG TABLET PO PRN
[2025-02-18] MEDS ORDERED: LORazepam 0.5 MG TABLET PO SCH (22:00)
[2025-02-20] MEDS ORDERED: LORazepam 0.5 MG TABLET PO ONE (05:00)
== END 2025-02-17 14:00 | disposition left against medical advice (07) | DRG 770 ==
LOC: YASAS 15:05 → Y3N 16:46
PROVIDERS: ADMIT Allergy & Immunology; ATTEND Allergy & Immunology
PROC: HZ2ZZZZ Detoxification Services for Substance Abuse Treatment (ICD-10-PCS; principal; 2025-02-15)
DX: F10.230 Alcohol dependence with withdrawal, uncomplicated (principal); F14.10 Cocaine abuse, uncomplicated; F19.280 Other psychoactive substance dependence with psychoactive substance-induced anxiety disorder; F43.10 Post-traumatic stress disorder, unspecified; Z21 Asymptomatic human immunodeficiency virus [HIV] infection status; E03.9 Hypothyroidism, unspecified; E78.5 Hyperlipidemia, unspecified; I25.10 Atherosclerotic heart disease of native coronary artery without angina pectoris; I10 Essential (primary) hypertension; Z95.5 Presence of coronary angioplasty implant and graft; Z79.02 Long term (current) use of antithrombotics/antiplatelets; K21.9 Gastro-esophageal reflux disease without esophagitis; Z79.899 Other long term (current) drug therapy; Z88.2 Allergy status to sulfonamides; Z88.8 Allergy status to other drugs, medicaments and biological substances; Z86.718 Personal history of other venous thrombosis and embolism
CPT/HCPCS: 36415; 80053; 80305; 80307; 85027; 86593; 86780; 93005; 93010